=== PATIENT | female | born 1985 | race Two or more races ===

== ENCOUNTER 2021-02-04 15:58 | Emergency (ER) | payer BC ==
[~2021-02-04] VITALS: Ht 167.6 cm; Wt 62.6 kg
--- NOTE | 2021-02-04 16:45 | NUR ---
JAMI DALLAS AT BEDSIDE FOR EVAL.
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
[2021-02-04] MEDS ORDERED: TRAMADOL HCL 50 MG TABLET PO ONE (17:00)
[2021-02-04] MEDS ORDERED: TRAMADOL HCL 50 MG TABLET ONE (17:13)
[2021-02-04] MEDS ORDERED: HYDR-4303 PO (18:19)
[2021-02-04] MEDS ORDERED: IBUP-1955 PO (18:19)
[2021-02-04] MEDS ORDERED: HYDROCODONE/APAP 5/325MG TABLET ONE (18:28)
[2021-02-04] MEDS ORDERED: IBUPROFEN 600 MG TABLET ONE (18:28)
[2021-02-04] MEDS ORDERED: HYDROCODONE/APAP 5/325MG TABLET PO ONE (18:30)
[2021-02-04] MEDS ORDERED: IBUPROFEN 600 MG TABLET PO ONE (18:30)
--- NOTE | 2021-02-04 18:33 | NUR ---
Patient discharged to home in stable condition. Written and verbal after care instructions given. Patient verbalizes understanding of instruction.
[2021-02-04 18:34] VITALS: BP 121/84
== END 2021-02-04 18:34 | disposition home or self-care (01) ==
LOC: ER 15:58
DX: S20.211A Contusion of right front wall of thorax, initial encounter (principal); V19.88XA Pedal cyclist (driver) (passenger) injured in other specified transport accidents, initial encounter; Y93.89 Activity, other specified; Y92.89 Other specified places as the place of occurrence of the external cause; Y99.8 Other external cause status
CPT/HCPCS: 71100-TC